=== PATIENT | female | born 1960 | race Caucasian/White ===

== ENCOUNTER 2023-06-03 11:36 | Outpatient (CLI) | payer OTHER, SELFPAY ==
--- NOTE | ~2023-06-03 | XR_ITS ---
[id number] DATE: 06/03/2023 12:55 INDICATION: Right rib pain TECHNIQUE: PA chest. 3 views of right ribs. COMPARISON: None FINDINGS: Heart size measures within upper limits of normal. There is aortic arch calcification. No h ilar or mediastinal enlargement. No pulmonary infiltrate or consolidation, pleural effusion or pulmonary vascular congestion or pneumo thorax is detected. Diffuse osteopenia. No right rib fracture or bone destruction is evident. IMPRESSION: No right rib fracture or bone destruction is evident Osteopenia No active cardiopulmonary disease Aortic atherosclerosis Reviewed, dictated and finalized at [facility]. Reviewed, dictated and finalized at [facility]. 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
--- NOTE | ~2023-06-03 | XR_ITS ---
XR thoracic spine 3V DATE: 06/03/2023 12:55 INDICATION: Right rib pain TECHNIQUE: AP, lateral, swimmer views of the thoracic spine COMPARISON: None FINDINGS: There is diffuse osteopenia. There is minimal thoracic scoliosis. No fracture or dislocation or bone destruction. The thoracic pedicles are intact. There is minimal de generative spurring of the thoracic spine. No paraspinal soft tissue thickening. IMPRESSION: Osteopenia Minimal thoracic scoliosis Minimal degenerative spurring Reviewed, dictated and finalized at location [facility]. 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
== END 2023-06-03 11:37 ==
DX: R07.81 Pleurodynia (principal); M85.88 Other specified disorders of bone density and structure, other site; I70.0 Atherosclerosis of aorta
CPT/HCPCS: 71101; 72072